=== PATIENT | male | born 1980 | race Caucasian/White ===

== ENCOUNTER → 2018-03-21 | Outpatient (REF) | payer BC ==
[2018-03-21 15:33] LABS: ALBUMIN 4.3 GM/DL (3.2-5.2); ALKALINE PHOSPHATASE 62 U/L (45-117); ALT/SGPT 24 U/L (12-78); ANION GAP 9 MEQ/L (8-16); AST/SGOT 17 U/L (7-37); BILIRUBIN,TOTAL 0.6 MG/DL (0.2-1.0); BLOOD UREA NITROGEN 20 MG/DL (7-18); CARBON DIOXIDE LEVEL 25 MEQ/L (21-32); CHLORIDE LEVEL 108 MEQ/L (98-107); CHOLESTEROL LEVEL 215 MG/DL (<200); CHOLESTEROL RISK RATIO 4.215 (<5); CREATININE FOR GFR 0.98 MG/DL (0.70-1.30); GLOMERULAR FILTRATION RATE > 60.0 (>60); GLUCOSE, FASTING 93 MG/DL (70-100); HDL CHOLESTEROL 51 MG/DL (>40); LDL CHOLESTEROL 133.6 MG/DL (<100); NON-HDL-C 164 MG/DL; POTASSIUM SERUM 4.7 MEQ/L (3.5-5.1); SODIUM LEVEL 142 MEQ/L (136-145); TOTAL PROTEIN 7.6 GM/DL (6.4-8.2); TRIGLYCERIDES LEVEL 152 MG/DL (<150)
== END ==
LOC: M LAB REF 14:16
DX: M54.5 Low back pain (principal)
CPT/HCPCS: 84443

== ENCOUNTER → 2018-03-29 | Outpatient (REF) | payer BC ==
[2018-03-29 14:22] LABS: FREE T4 1.22 NG/DL (0.76-1.46)
== END ==
LOC: M LAB REF 13:23
DX: R03.0 Elevated blood-pressure reading, without diagnosis of hypertension (principal)
CPT/HCPCS: 84443

== ENCOUNTER → 2018-11-08 | Outpatient (REF) | payer BC ==
[2018-11-08 13:34] LABS: FREE T4 1.17 NG/DL (0.76-1.46); THYROID PEROXIDASE ANTIBODY 49.8 U/ML (<60.0); THYROID STIMULATING HORMONE 0.144 uIU/ML (0.358-3.740)
== END ==
LOC: M LAB REF 12:17
PROVIDERS: ATTEND Family Medicine Addiction Medicine
DX: R94.6 Abnormal results of thyroid function studies (principal)